=== PATIENT | female | born 1940 | race Caucasian/White ===

== ENCOUNTER → 2020-05-27 11:49 | Outpatient (CLI) | payer MEDICARE, OTHER, SELFPAY ==
[2020-05-28 12:29] LABS: COVID19 Sendout Not Detected (Not Detect)
== END ==
PROVIDERS: Visit Provider Physician Assistant
DX: Z11.59 Encounter for screening for other viral diseases (principal)
CPT/HCPCS: 87635

== ENCOUNTER 2020-05-31 14:30 | Inpatient (IN) | payer MEDICARE, OTHER, SELFPAY ==
[2020-05-23 08:39] VITALS: BMI 23.8
[2020-05-30] VITALS (14 sets, daily range): BP systolic 95–142; BP diastolic 53–84; PULSE 64–100; RESP 11–22; TEMP 36.1–36.9; O2SAT 96–100; BMI 24.3
--- NOTE | 2020-05-30 | DI.RAD.S_ITS ---
PROCEDURE: [id number] W PEL IF PERFORMED INDICATIONS: INTRA OP LEFT HIP TECHNIQUE: 6 operative images of the pelvis and left hip COMPARISON: [facility], CR, [id number] W PEL IF PERFORMED, 12/24/2015, 14:36. FINDINGS: Operative imaging demonstrates performance of total left hip arthroplasty. There is no radiographic evidence of complications. IMPRESSION: Operative imaging demonstrating total left hip arthroplasty with no radiographic evidence of complications. Dictated by: Vikas Zuñiga M.D. on 05/30/2020 at 14:59 Approved by: Vikas Zuñiga M.D. on 05/30/2020 at 15:02
--- NOTE | 2020-05-30 09:56 | DI.RAD.S_ITS ---
PROCEDURE: XR HIP W PEL IF DONE LT 2V INDICATIONS: BEATRICE TECHNIQUE: AP pelvis and lateral view of the left hip acquired. COMPARISON: [facility], CR, [id number] W PEL IF PERFORMED, 05/30/2020, 12:50. FINDINGS: Bones: Patient is status post left hip arthroplasty, with hardware components in expected positions. The hip joint appears congruent. The visualized bony structures appear intact. Soft tissues: Overlying postoperative changes are noted. No suspicious soft tissue densities. IMPRESSION: Expected immediate postoperative appearance of total left hip arthroplasty. Dictated by: Vikas Zuñiga M.D. on 05/30/2020 at 15:02 Approved by: Vikas Zuñiga M.D. on 05/30/2020 at 15:03
[2020-05-30] MEDS: PREGABALIN 75 MG CAPSULE PO (10:15)
[2020-05-30] MEDS: ACETAMINOPHEN 325 MG TABLET 975 MG PO (10:15)
[2020-05-30] MEDS: VANCOMYCIN 1,000 MG/200 ML PIGGYBACK 200 MG IV (10:22)
--- NOTE | 2020-05-30 10:46 | P.OP_ITS ---
Operative Date/Time/Diagnoses Date of procedure: 05/30/20 Time of procedure: 11:31 Pre-op diagnosis: Left hip osteoarthritis Post-op diagnosis: same Procedure & Clinicians Procedure: Left total hip arthroplasty anterior approach Same procedure as scheduled: Yes Indications: The patient has had progressively worsening left hip pain with radiographic changes consistent with arthritis. Non-operative management has failed and the patient has requested total hip replacement. The risks, benefits and alternatives to surgery were discussed with the patient prior to proceeding. Risks discussed included, but were not limited to, failure to relieve pain, leg length discrepancy, dislocation, stiffness, infection, nerve damage, deep venous thrombosis, pulmonary embolism, stroke, coma, heart attack, permanent paralysis and , as well as the potential need for eventual revision of the prosthetic. Surgeon: Kandy Gerardo Bioinformatics Team Member: Markos Merrill Anesthesia Type: General and Spinal Operative Notes Findings: Severe left hip osteoarthritis, good stability, adequate bone Closure Type: primary Specimen(s): none sent Prosthetic devices, grafts, tissues, transplants, or devices: [employer] R3 50mm, anthology standard offset size 5, -3 by 32, 2 scews Estimated Blood Loss (mL): 250 Blood products transfused: none Procedure in detail: The patient was brought to the operating room. Patient was carefully positioned in the supine position. Time-out was performed and antibiotics were given. Anesthesia was induced. She was positioned in the on the table in order to allow hyperextension of the hip. The left lower extremity was prepped and draped in a standard sterile fashion. An anterior left hip incision was made 1 fingerbreadth lateral to the anterior superior iliac spine and extended distally towards the greater trochanter. Dissection was carried out through skin and subcutaneous tissues. The skin and subcutaneous tissues were carefully injected with Lidocaine with epi. Superficial hemostasis was achieved. The fascia over the tensor fascia homero was defined and incised with a knife. Two Allis clamps were used to grasp the fascia. Tensor fascia homero was retracted laterally. A gelpi retractor was placed. Dissection was carried out down along the neck. The circumflex vessels were carefully identified and cauterized with the Aqua Mantis. There was good visualization of the femoral neck. A Cobra was placed superior to the neck and the gluteus fibers were carefully stripped from that superior aspect of the capsule. A 2nd retractor was placed along the inferior aspect of the neck. The rectus insertion along the capsule was partially released. A 3rd retractor that was then gently placed over the rim of the acetabulum under the rectus. Capsule was carefully incised and released from the intertrochanteric line circumferentially superior to the mid sagittal line and inferiorly to the mid sagittal line until the lesser trochanter was palpable. A tag stitch was placed both in the superior and inferior limb of the capsular insertion. Along the acetabulum capsule was also released up to the mid sagittal 12:00 position. A portion of the labrum was resected. A saw was used to perform an osteotomy at the level of the intertrochanteric line and the junction of the superior femoral neck leaving approximately 1 finger breath of residual inferior neck above the lesser trochanter. A 2nd cut was made along the femoral neck at the base of the head and a napkin ring of neck was removed. Corkscrew was placed in the femoral head and the head was removed without difficulty. Retractors were then repositioned around the acetabulum. Residual labrum was resected and additional osteophytes were removed. A reamer that was 4 mm below the templated size was placed by hand in t he acetabulum and it was reamed to centralize the acetabulum. It was then reamed up to 2 under the templated size and fluoroscopy was brought in to confirm the position of the reaming and depth of reaming. I reamed 1 under the anticipated size and touched the rim with line to line reaming. There was slight thinning of the anterior rim. A trial cup was placed and noted that it was appropriately sized and fluoroscopy confirmed position and depth. The component was open and inserted without difficulty fluoroscopic imaging was used to confirm that the cup had been adequately seated and was well positioned. Two screws were used to stabilize the acetabulum. Neutral poly liner was placed. The cup was tested and noted to be stable. Attention was then directed to the femur. The femur was gently hyperextended additional capsular release was performed as needed in order to allow adequate visualization of the proximal femur with elevation of the femur. Patient was placed in a hyperextended slightly adducted position with maximum external rotation. Box osteotome was used to check for any residual neck as well as sclerotic bone along the trochanter. [place] pepper was placed in the femur. A dditional broaching was performed. Canal finder was used to determine the alignment of the canal and position. Size 1 broach was placed. The canal was then appropriately broached up to the templated size as long as there was adequate stability of the broach and serial advancement of the broach without excessive impingement. Specific attention was directed at avoiding varus attempting to direct the distal aspect of the broach more anteriorly and avoiding excessive anteversion. Trial reduction showed acceptable range of motion, good stability, no posterior impingement, advent of leg length and appropriate lateral shuck. I also hyperflexed the hip and checked that there was no impingement anteriorly and there was good stability with flexion, adduction and internal rotation. Marcaine and Exparel were injected. The stem was placed without difficulty. Repeat trial reduction and x-ray showed acceptable overall position, length, and no evidence of the femoral fracture. Final head was placed. Wound was meticulously irrigated with normal saline. The hip was reduced and additional Exparel and Marcaine were injected. The capsule was closed with interrupted nonabsorbable sutures. The fascia of the tensor was closed with interrupted and running Vicryl. No drain was placed. Any tensor fascia homero muscle that appeared to be contused or injured which was a minimal amount was carefully resected. Capsule around the tensor was injected with Exparel and Marcaine. The skin was closed with barbed stitches for the subcutaneous tissue and skin. We also used surgical glue. The wound was dressed sterilely. Brief Betadine soak was also used and was meticulously irrigated with normal saline. Patient was transferred to recovery room in satisfactory condition. Complications: none Post-operative Condition: stable Disposition: Acute Care Plan for aftercare: The patient will be maintained on a standard total hip replacement protocol with weight bearing as tolerated and anterior hip precautions. The patient will receive Aspirin and sequential compression devices for DVT prophylaxis. The patient will be discharged home when safe for the home environment.
--- NOTE | 2020-05-30 10:46 | PM.PREOP ---
Pre-operative Note COVID-19 COVID-19 status: Negative Interval Note History & Physical reviewed/Exam performed by Physician: Yes Changes to H&P: No
[2020-05-30] MEDS: CEFAZOLIN 2 GM/100 ML FROZ.PIGGY IV (11:36)
--- NOTE | 2020-05-30 11:40 | SUR.OPER ---
Supine on padded [place] table with bilateral legs secured in padded positioning boots and suspended in positioning spars, operative leg in traction per surgeon. Head on one pillow. Arm on non-operative side secured on padded armboard <90 degrees abduction. Arm on operative side padded and resting across chest then secured with tape over sheet. Padded perineal post in place per surgeon.
[2020-05-30] MEDS: TRANEXAMIC ACID 1,000 MG VIAL 2000 MG INJ ×2 (11:55→13:46)
[2020-05-30] MEDS: BUPIVACAINE LIPOSOME 266 MG/20 ML VIAL INJ (12:11)
[2020-05-30] MEDS: BUPIVACAINE 0.25% W/ EPI 30 ML VIAL 60 ML INJ (12:12)
[2020-05-30] MEDS: SODIUM CHLORIDE IRRIG SOLUTION 250 ML, POVIDONE-IODINE SPONGE STICKS 1 APPLIC IRR (12:14)
[2020-05-30] MEDS: LACTATED RINGERS 1,000 ML 42 ML IV (14:09)
--- NOTE | 2020-05-30 15:02 | PC.NURSE ---
Patient brought up from PACU at change of shift, oriented to room and call light, VSS. Wiggling feet and toes, +CMS. awake, pleasant and eating ice chips. Aquacel to left anterior hip noted, CDI. Patient denies pain. Call light placed within reach. Called PACU to request updated transfer orders, evening shift RN to assume care to admit.
[2020-05-30] MEDS: ACETAMINOPHEN 325 MG TABLET 650 MG PO (21:16)
[2020-05-30] MEDS: DOCUSATE 100 MG CAPSULE PO (21:16)
[2020-05-30] MEDS: ASPIRIN EC 81 MG TABLET PO (21:16)
--- NOTE | 2020-05-30 23:49 | PC.NURSE ---
Addendum entered by Peg Arzola R.N. 05/31/20 06:02: States pain still at 4/10 and requesting Tylenol so scheduled a.m. dose given early. Did not want additional Oxycodone as she states that doesn't work. Reports was only taking Tylenol at home for effective pain relief. Ice pack applied. State nausea has resolved. Addendum entered by Peg Arzola R.N. 05/31/20 05:15: Complaining of feeling nauseated and stomach hurts; medicated with Zofran and given gingerale per patient request. Addendum entered by Peg Arzola R.N. 05/31/20 03:59: States pain is unchanged but reports it is tolerable and needs no further pain medication. Addendum entered by Peg Arzola R.N. 05/31/20 02:52: Complains of 4/10 pain in left hip along with some numbness on lateral aspect. Long discussion regarding pain medications as patient not really wanting to take narcotics and concern that narcotics with impede her ability to walk in the morning. After provided information, patient agreeable to taking Oxycodone. Original Note: Patient is alert and oriented. Breath sounds CTA with RA sat of 98%. HRR. Denies nausea. BT present and states she is passing flatus but complains of feeling bloated. Denies dysuria, frequency or urgency with urination. Dressing to anterior left hip is CDI. Denies pain except with movement so discussed use of pain medication but patient declines to take anything at this time; ice applied to hip. Is able to move self in bed. Up to bathroom with walker and 1 assist per evening shift report. CMS intact but patient is unable to lift left leg off bed; states she could not lift leg pre-op either. Wearing bilateral calf SCD's. Fall risk score is moderate and bed alarm is activated. Daughter rooming in.
[2020-05-31] MEDS: OXYCODONE IR 5 MG TABLET PO (02:50)
[2020-05-31 04:11] VITALS: BP 102/53; PULSE 80; RESP 18; TEMP 36.1; O2SAT 98
[2020-05-31] MEDS: ONDANSETRON 4 MG ODT PO (05:11)
[2020-05-31 05:53] LABS: Hematocrit 30.2 % (36-46); Hemoglobin 10.1 g/dL (12.0-16.0)
[2020-05-31] MEDS: LEVOTHYROXINE 100 MCG TABLET PO (05:56)
[2020-05-31] MEDS: ACETAMINOPHEN 325 MG TABLET 650 MG PO ×3 (05:56→20:04)
[2020-05-31 07:37] VITALS: BP 126/69; PULSE 71; RESP 18; TEMP 36.9; O2SAT 99
--- NOTE | 2020-05-31 08:05 | PC.NURSE ---
Addendum entered by Michelle Sanchez R.N. 05/31/20 10:49: Patient attempted to get out of bed with physical therapy and her blood pressure dropped to 82/50s. Immediately put back to bed, and then NS bolus started, patients last bp now 100s/ 56. She is stable, denies any dizziness or syncopal episodes and is napping now. She was in some pain when trying to get up, have not given her any pain medication yet as her blood pressure was so low. is aware of situation, he is the one who ordered the 1000cc NS bolus, which is infusing now. Original Note: Assess- Patient is A&Ox3, she is pleasant and cooperative with care. Dressing to l.anterior upper leg is cdi, patient getting out of bed with 1 pa and using gait belt to help lift her extremity. CMS wnl and ppx2. Daugher in room and attentive to patients needs and helpful.
[2020-05-31] MEDS: DOCUSATE 100 MG CAPSULE PO ×2 (08:16→20:04)
[2020-05-31] MEDS: ASPIRIN EC 81 MG TABLET PO ×2 (08:16→20:04)
[2020-05-31] MEDS: polyethylene glycoL 3350 17 GM POWD.PACK PO (08:16)
--- NOTE | 2020-05-31 09:20 | PT.IIE ---
Current Diagnoses Unilateral primary osteoarthritis, right hip (05/30/20) Other specified enthesopathies of unspecified lower limb, excluding foot (05/30/20) Surgery Performed Operation Date: 05/30/20 11:30 Actual Procedures p Total Hip Arthroplasty/Anterior Approach(Left) - Kandy Gerardo MD Surgical History (Last Updated 05/23/20 @ 08:45 by Esther Trujillo, RN) History of bunionectomy of both great toes (Acute) History of total right hip arthroplasty (Acute 12/2015) Hx of dilation and curettage (Acute) Hx of partial thyroidectomy (Acute 1978) Medical History (Last Updated 05/23/20 @ 09:17 by Esther Trujillo RN) Asthma (Acute) Deanna's disease (Acute) RLS (restless legs syndrome) (Acute) Vertigo (Acute) Physical Therapy Inpatient Evaluation/Re-Eval M1 PT/OT-IP Prior Functional Status Start: 05/31/20 12:41 Freq: NEEDED Status: Active Protocol: Document 05/31/20 09:20 AB (Rec: 05/31/20 12:54 [email or web address]) Medical Review Prior Functional Status Medical History Reviewed Yes Communication able to make needs known Mobility and Gait pt stated that she is modified independent with all mobilities and ambualtion using SPC occasionally without AD; occasionally uses FWW for outdoor ambulation. Social History Household Members none Living Arrangements House Number of Floors (Floors) One Floor Number of Stairs To Enter/Railing? no steps to enter Home Environment Standard Height Toilet,Walk in Shower,Built-In Shower Seat Home Equipment Front Wheel Walker,Straight Cane,Raised Toilet Seat w/ Armrests,Grab Bars In Shower Additional Social History Comment Pt's daughter will stay with pt to assist upon d/c M2 PT-IP Current Condition Start: 05/31/20 12:41 Freq: NEEDED Status: Active Protocol: Document 05/31/20 09:20 AB (Rec: 05/31/20 12:54 [email or web address]) Physical Therapy Current Condition Current Condition Evaluation Date 05/31/20 Treatment Diagnosis s/p L BEATRICE anterior approach; difficulty in walking Onset Date 05/30/20 Precautions Anterior Hip Precautions No Hip Extension,No Hip External Rotation Weight Bearing Status Weight Bearing Status Weight Bear as Tolerated Allowed Weight Bearing Amount (enter % LLE WBAT or #) (%) M3 PT-IP Subjective Start: 05/31/20 12:41 Freq: NEEDED Status: Active Protocol: Document 05/31/20 09:20 AB (Rec: 05/31/20 12:54 AB [email or web address]) Subjective Physical Therapy Visit Type Type Initial Evaluation Visit Start Time 09:20 Visit Stop Time 10:03 Total Visit Minutes 53 Number of PSYCHIATRIC CLINICAL NURSE SPECIALIST Visits 0 Physical Therapy Visit Comments Patient Comments pt is agreeable to do PT Therapy Pain Assessment Pain When Pain Assessed At Rest Pain Present Pain Present Pain Reported Location left hip Intensity 5 Scale Used Numeric (0 - 10) Pain Management Techniques Apply Cold,Elevation, Modification of Treatment,Re- positioning,Timing of Activity with Medications M4 PT-IP Mobility and Gait Start: 05/31/20 12:41 Freq: NEEDED Status: Active Protocol: Document 05/31/20 09:20 AB (Rec: 05/31/20 12:54 [email or web address]) PT-Bed Mobility Assessment Supine to Sit Supine to Sit Maximum Assistance,1 Person Assistance Sit to Supine Sit to Supine Maximum Assistance,1 Person Assistance PT-Transfer Assessment Comments Mobility Comments educated pt and pt's daughter regarding anterior hip precautions. pt has decrease attention span and requires redirection to focus on task at hand. BP supine: 88/51 but rechecked : 127/50. completed supine to sit max A and cues. c/o increase hip pain with mobility. pt was able to sit on EOB min A. c/o dizziness. BP checked: 75/45. pt has to be assisted back to bed. completed sit to supine max A and cues. positioned in bed. call light and table placed within reach. BP checked: 82/ 54. nurse aware. BP checked again: 97/54 PT-Balance Assessment Sitting Balance and Reactions Static Sitting Balance Ability Good Dynamic Sitting Balance Ability Fair Standing Balance and Reactions Device Used n/t M5 PT-IP Objective Assessments Start: 05/31/20 12:41 Freq: NEEDED Status: Active Protocol: Document 05/31/20 09:20 AB (Rec: 05/31/20 12:54 [email or web address]) Orientation Orientation/Cognition Level of Alertness Alert Orientation Name Language Function Ability Hard of Hearing Safety Awareness Decreased Safety Awareness Memory Description Short Term Impaired Gross Range of Motion Lower Extremity ROM Assessment Within Functional Limits Strength Lower Extremity Strength Assessment Left Impaired Hip 3-/5 Knee 3+/5 Coordination Assessment Gross Coordination Gross Coordination WNL Sensation Assessment Sensation Gross Sensation WNL Muscle Tone Muscle Tone WNL Yes M6 PT-IP Treatment Start: 05/31/20 12:41 Freq: NEEDED Status: Active Protocol: Document 05/31/20 09:20 AB (Rec: 05/31/20 12:54 AB [id number]) Physical Therapy Treatment Education Education Provided Precautions,Weight Bearing Status,Post-Op Packet,Safety M7 PT-IP Assessment and Plan Start: 05/31/20 12:41 Freq: NEEDED Status: Active Protocol: Document 05/31/20 09:20 AB (Rec: 05/31/20 12:54 AB [email or web address]) PT Summary Assessment and Plan Potential Rehabilitation Potential Fair Status of Condition at Evaluation Evolving Summary Impairments Pain,ROM,Strength,Balance, Coordination,Sensation,Tone, Cognition,Bed Mobility, Transfers,Gait,Activity Tolerance Assessment Summary Pt unable to tolerate much activity today due to decrease in BP to 75/45 in sitting. will need further assessment to determine safe d/c plan. pt wants to go home and daughter will be staying with pt to assist. will continue to assess progress. Goals Bed Mobility Goal Standby Assistance Transfer Goal Standby Assistance,Front Wheeled Walker Gait Goal Standby Assistance,Front Wheel Walker Gait Distance 150 Days to Meet Goals 5 Frequency of Treatment Frequency Of Treatment Twice a Day Treatment Plan Physical Therapy Treatment Plan Bed Mobility Training,Transfer Training,Gait Training, Therapeutic Exercise,Balance Retraining,Post Op Education, Discharge Planning,Hot or Cold Pack,Neuromuscular Re-ed, Coordination Retraining,Manual Therapy Recommendations To Nursing Amount of Assist Needed PT/OT Assist Only Discharge Recommendations PT Discharge Recommendations Home with 24/7 Assist,Home Health,SNF Rehab Other Discharge Recommendations depending on progress: SNF vs home with 24/7 and HHPT Transportation Needs at Discharge Private Vehicle,Wheelchair/ Cabulance
[2020-05-31] MEDS: SODIUM CHLORIDE 0.9% 1,000 ML 1000 ML IV (10:21)
[2020-05-31 11:11] VITALS: BP 108/69; PULSE 83; RESP 19; TEMP 37.1; O2SAT 92
--- NOTE | 2020-05-31 13:20 | PT.IPTN ---
Current Diagnoses Unilateral primary osteoarthritis, right hip (05/31/20) Other specified enthesopathies of unspecified lower limb, excluding foot (05/31/20) Surgery Performed Operation Date: 05/30/20 11:30 Actual Procedures p Total Hip Arthroplasty/Anterior Approach(Left) - Kandy Gerardo MD Physical Therapy Treatment Note M2 PT-IP Current Condition Start: 05/31/20 12:41 Freq: NEEDED Status: Active Protocol: Document 05/31/20 09:20 AB (Rec: 05/31/20 12:54 AB [email or web address]) Physical Therapy Current Condition Current Condition Evaluation Date 05/31/20 Treatment Diagnosis s/p L BEATRICE anterior approach; difficulty in walking Onset Date 05/30/20 Precautions Anterior Hip Precautions No Hip Extension,No Hip External Rotation Weight Bearing Status Weight Bearing Status Weight Bear as Tolerated Allowed Weight Bearing Amount (enter % LLE WBAT or #) (%) M3 PT-IP Subjective Start: 05/31/20 12:41 Freq: NEEDED Status: Active Protocol: Document 05/31/20 13:20 AB (Rec: 05/31/20 16:58 AB [email or web address]) Subjective Physical Therapy Visit Type Type Treatment Note Visit Start Time 13:20 Visit Stop Time 14:30 Total Visit Minutes 70 Number of ROD AND TUBE STRAIGHTENER Visits 0 Physical Therapy Visit Comments Patient Comments pt is agreeable to do PT Therapy Pain Assessment Pain When Pain Assessed During Mobility Pain Present Pain Present Pain Reported Location left hip Scale Used pain scale not stated M4 PT-IP Mobility and Gait Start: 05/31/20 12:41 Freq: NEEDED Status: Active Protocol: Document 05/31/20 13:20 AB (Rec: 05/31/20 16:58 [email or web address]) PT-Bed Mobility Assessment Supine to Sit Supine to Sit Moderate Assistance,Maximum Assistance,1 Person Assistance PT-Transfer Assessment Sit to and From Stand Sit to and from Stand Minimal Assistance,1 Person Assistance,Use of Upper Extremities Equipment Transfer Assistive Device Gait Belt,Front Wheeled Walker Orthotic/Prosthetic Devices or Brace: No Transfers Transfer Destination Toilet Transfer Technique ambulated using FWW Transfer Ability Level of Assist Minimal Assistance,1 Person Assistance,Use of Upper Extremities Comments Mobility Comments reviewed hip precautions and pt unable to recall and requires cues. educated on precautions again. BP monitored. BP supine: 120/64. pt requesting to use the toilet. completed sit to supine mod to max A for assisting LE to EOB. pt was able to sit on EOB CGA. BP checked:149/60 . pt with no c /o dizziness. pt completed sit to stand min A and cues. pt ambulated to the toilet using FWW min A. cued to maintain hip precautions. completed sit to stand from the tilet min A using grab bar . pt ambulated towards the chair min A using FWW. BP checked: 86/51. pt rested for ~ 2min and BP checked again: 76/46. positioned pt on chair with LE elevated. BP checked: 99/54. call light and table placed within reach. informed nurse of low BP. informed pt and family of caregiver training tomorrow and daughter agreed and stated that she will be in the hospital the whole day. Gait Assessment Gait Gait Assistance Required: Minimum Assistance Distance (Feet) 12 Able to Maintain Weight Bearing Status Yes During Gait Assistive Devices Assistive Device Gait Belt,Front Wheeled Walker Orthotic/Prosthetic Devices or Brace: No Gait Deviations General Gait Pattern Decreased Stride Length, Decreased Feet Clearance Factors Limiting Gait Function Factors Limiting Gait Function Decreased Activity Tolerance, Decreased Strength,Difficulty Following Directions,Limited Range of Motion,Pain,Poor Balance,Poor Safety Awareness Comments Gait Comments requires cues to maintain hip precautions and step by step instructions for techniques. pt has decrease memory and affecting carryover. M5 PT-IP Objective Assessments Start: 05/31/20 12:41 Freq: NEEDED Status: Active Protocol: Document 05/31/20 09:20 AB (Rec: 05/31/20 12:54 AB [email or web address]) Orientation Orientation/Cognition Level of Alertness Alert Orientation Name Language Function Ability Hard of Hearing Safety Awareness Decreased Safety Awareness Memory Description Short Term Impaired Gross Range of Motion Lower Extremity ROM Assessment Within Functional Limits Strength Lower Extremity Strength Assessment Left Impaired Hip 3-/5 Knee 3+/5 Coordination Assessment Gross Coordination Gross Coordination WNL Sensation Assessment Sensation Gross Sensation WNL Muscle Tone Muscle Tone WNL Yes M6 PT-IP Treatment Start: 05/31/20 12:41 Freq: NEEDED Status: Active Protocol: Document 05/31/20 13:20 AB (Rec: 05/31/20 16:58 AB [email or web address]) Physical Therapy Treatment Education Education Provided Precautions,Weight Bearing Status,Safety M7 PT-IP Assessment and Plan Start: 09/25/20 12:41 Freq: NEEDED Status: Active Protocol: Document 05/31/20 13:20 AB (Rec: 05/31/20 16:58 AB [id number]) PT Summary Assessment and Plan Potential Rehabilitation Potential Fair Summary Impairments Pain,ROM,Strength,Balance, Coordination,Sensation,Tone, Cognition,Bed Mobility, Transfers,Gait,Activity Tolerance Progress Towards Goals Slow Progress due to Activity Tolerance Assessment Summary pt continues to not tolerate much activity due to decrease in BP with upright activity: 76/46 after ambulation. pt also has cognitive issues affecting following instructions, carryover and recall of hip precautions. pt 's rivas plans to assist pt at home and agreed to caregiver training tomorrow. stated that she will be in the hospital for the whole day. d/c plan depending on progress . Goals Bed Mobility Goal Standby Assistance Transfer Goal Standby Assistance,Front Wheeled Walker Gait Goal Standby Assistance,Front Wheel Walker Gait Distance 150 Days to Meet Goals 5 Frequency of Treatment Frequency Of Treatment Twice a Day Treatment Plan Physical Therapy Treatment Plan Bed Mobility Training,Transfer Training,Gait Training, Therapeutic Exercise,Balance Retraining,Post Op Education, Discharge Planning,Hot or Cold Pack,Neuromuscular Re-ed, Coordination Retraining,Manual Therapy Recommendations To Nursing Amount of Assist Needed 1 Person Assist Discharge Recommendations PT Discharge Recommendations Home with 24/7 Assist,Home Health,SNF Rehab Other Discharge Recommendations depending on progress: SNF vs home with 24/7 and HHPT Transportation Needs at Discharge Private Vehicle,Wheelchair/ Cabulance
[2020-05-31 15:57] VITALS: BP 96/53; PULSE 79; RESP 18; TEMP 37.3; O2SAT 98
[2020-05-31 19:54] VITALS: BP 107/49; PULSE 88; RESP 18; TEMP 37.2; O2SAT 98
[2020-05-31] MEDS: SODIUM CHLORIDE 0.9% FLUSH 10 ML IV (20:04)
[2020-05-31 23:50] VITALS: BP 108/52; PULSE 87; RESP 16; TEMP 37.1; O2SAT 95
[2020-06-01 04:45] VITALS: BP 128/66; PULSE 93; RESP 18; TEMP 36.7; O2SAT 96
[2020-06-01] MEDS: LEVOTHYROXINE 100 MCG TABLET PO (05:58)
[2020-06-01] MEDS: ACETAMINOPHEN 325 MG TABLET 650 MG PO ×2 (06:01→11:05)
--- NOTE | 2020-06-01 06:39 | PC.NURSE ---
Slept in the recliner all shift, reports only have pain when I get to the BR. Requested Tylenol 650 mg. admin. Hoping to go home this morning, will cont. POC & monitor.
[2020-06-01] MEDS: DOCUSATE 100 MG CAPSULE PO (08:43)
[2020-06-01] MEDS: SODIUM CHLORIDE 0.9% FLUSH 10 ML IV (08:43)
[2020-06-01] MEDS: ASPIRIN EC 81 MG TABLET PO (08:43)
--- NOTE | 2020-06-01 09:28 | PM.PN.1 ---
Subjective Subjective Date Patient Seen: 06/01/20 Time Patient Seen: 09:48 Interval history: Patient is POD#2 s/p left BEATRICE with Dr. Gerardo. She had some hypotension yesterday while working with PT. She was given 1000ml bolus NS and was able to work with PT later in the afternoon. She is asymptomatic this morning. Pain has been minimal and well controlled with Tylenol. She is tolerating a diet and voiding appropriately. Exam Vital Signs (past 8 hours): - 06/01/20 04:45 Temperature 98.1 F Pulse Rate 93 H Respiratory Rate 18 Blood Pressure 128/66 Pulse Oximetry 96 Oxygen Delivery Method Room Air Oxygen Flow Rate 0 Narrative Exam Narrative: 80 year old female resting in chair, alert and oriented. Aquacel dressing in place over right hip is CDI. She is neurovascularly intact in distal extremity. Calves soft, nontender. Objective Labs Result Diagrams: 05/31/20 05:24 Assessment & Plan Assessment & Plan narrative: Patient doing well postoperatively. Hypotension is resolving. She has succesfully mobilized with PT. ASA 81mg BID for DVT prophylaxis. Will discharge her with script for oxycodone, discussed filling this only if pain worsens over the next few days. Anticipate she will not require this. Stable for discharge to home with daughter as caregiver later today.
[2020-06-01 09:45] VITALS: BP 105/50; PULSE 78; RESP 16; TEMP 37.2; O2SAT 97
--- NOTE | 2020-06-01 11:31 | PT.IPTN ---
Current Diagnoses Unilateral primary osteoarthritis, right hip (05/31/20) Other specified enthesopathies of unspecified lower limb, excluding foot (05/31/20) Surgery Performed Operation Date: 05/30/20 11:30 Actual Procedures p Total Hip Arthroplasty/Anterior Approach(Left) - Kandy Gerardo MD Physical Therapy Treatment Note M2 PT-IP Current Condition Start: 05/31/20 12:41 Freq: NEEDED Status: Discharge Protocol: Document 05/31/20 09:20 AB (Rec: 05/31/20 12:54 AB [id number]) Physical Therapy Current Condition Current Condition Evaluation Date 05/31/20 Treatment Diagnosis s/p L BEATRICE anterior approach; difficulty in walking Onset Date 05/30/20 Precautions Anterior Hip Precautions No Hip Extension,No Hip External Rotation Weight Bearing Status Weight Bearing Status Weight Bear as Tolerated Allowed Weight Bearing Amount (enter % LLE WBAT or #) (%) M3 PT-IP Subjective Start: 05/31/20 12:41 Freq: NEEDED Status: Discharge Protocol: Document 06/01/20 10:55 [place] (Rec: 06/01/20 12:36 [place] [email or web address]) Subjective Physical Therapy Visit Type Type Treatment Note Visit Start Time 10:55 Visit Stop Time 11:31 Total Visit Minutes 36 Number of BOBTAIL DRIVER Visits 1 Physical Therapy Visit Comments Patient Comments Pts daugther present for caregiver training. M4 PT-IP Mobility and Gait Start: 05/31/20 12:41 Freq: NEEDED Status: Discharge Protocol: Document 06/01/20 10:55 [place] (Rec: 06/01/20 12:36 [place] [id number]) PT-Bed Mobility Assessment Supine to Sit Supine to Sit Minimal Assistance Sit to Supine Sit to Supine Minimal Assistance,1 Person Assistance Scooting Scooting to Edge of Bed Standby Assistance PT-Transfer Assessment Sit to and From Stand Sit to and from Stand Contact Guard Assistance,1 Person Assistance,Use of Upper Extremities Equipment Transfer Assistive Device Gait Belt,Front Wheeled Walker Orthotic/Prosthetic Devices or Brace: No Transfers Transfer Destination Bed,Chair Transfer Technique ambulated using FWW Transfer Ability Level of Assist Contact Guard Assistance,1 Person Assistance,Use of Upper Extremities Comments Mobility Comments Pt in chair upon arrival w/ daughter present. Pt able to recall precautions. Demonstrated gait belt application to pts daughter, who was able to successfully apply. Pt SBA for scooting to EOC, CGA for sit<>stand. BP 115/67 after 2 min standing. Pt then ambulated about ~20 ft around room w/ daughter providing CGA. Pts BP assessed again at 113/60. Pt demonstrated good use of FWW. Pt then stand<>sit EOB SBA and sit<>sup Min A for LE assistance provided by pts daughter. Pt Min A for sup<> sit for LE guidance as well. Pt then sit<>stand CGA provided by pts daughter and ambulated addtional ~20 ft around room before stand<>sit in chair CGA. Reviewed LE exercises, appropriate positioning, precaustions, gait belt use, and provided instruction for car transfers to pt and daughter. Pts daughter states she feels that she will be able to provide pt w/ assist at home. Pt expressed interest in HH, informed [employer] who provided pt w / info. Gait Assessment Gait Gait Assistance Required: Contact Guard Assist Distance (Feet) 40 Able to Maintain Weight Bearing Status Yes During Gait Assistive Devices Assistive Device Gait Belt,Front Wheeled Walker Orthotic/Prosthetic Devices or Brace: No Gait Deviations General Gait Pattern Decreased Stride Length, Decreased Feet Clearance Factors Limiting Gait Function Factors Limiting Gait Function Decreased Activity Tolerance, Decreased Strength,Difficulty Following Directions,Limited Range of Motion,Pain,Poor Balance,Poor Safety Awareness Comments Gait Comments Pt ambulated ~40 total ft w/ FWW step to gait and CGA provided by pts kade. Pt demonstrated safe use of FWW and good awareness of precautions. No LOB or unsteadiness throughout. Stair Climbing Assessment Comments Stair Climbing Comments not assessed, no stairs at home. PT-Balance Assessment Sitting Balance and Reactions Static Sitting Balance Ability Good Dynamic Sitting Balance Ability Good Standing Balance and Reactions Static Standing Balance Ability Good Dynamic Standing Balance Ability Fair Device Used FWW M5 PT-IP Objective Assessments Start: 05/31/20 12:41 Freq: NEEDED Status: Discharge Protocol: Document 05/31/20 09:20 AB (Rec: 05/31/20 12:54 AB [id number]) Orientation Orientation/Cognition Level of Alertness Alert Orientation Name Language Function Ability Hard of Hearing Safety Awareness Decreased Safety Awareness Memory Description Short Term Impaired Gross Range of Motion Lower Extremity ROM Assessment Within Functional Limits Strength Lower Extremity Strength Assessment Left Impaired Hip 3-/5 Knee 3+/5 Coordination Assessment Gross Coordination Gross Coordination WNL Sensation Assessment Sensation Gross Sensation WNL Muscle Tone Muscle Tone WNL Yes M6 PT-IP Treatment Start: 05/31/20 12:41 Freq: NEEDED Status: Discharge Protocol: Document 06/01/20 10:55 [place] (Rec: 06/01/20 12:36 KS [id number]) Physical Therapy Treatment Exercises Exercises Ankle Pumps,Gluteal Sets,Quad Sets Education Education Provided Precautions,Weight Bearing Status,Post-Op Packet,Safety Other Treatments Other Treatment Performed Completed caregiveer training w/ pts daughter including bed mobility, transfers, gait belt application and use, exercises, ambulation. M7 PT-IP Assessment and Plan Start: 05/31/20 12:41 Freq: NEEDED Status: Discharge Protocol: Document 06/01/20 10:55 KS (Rec: 06/01/20 12:36 KS [id number]) PT Summary Assessment and Plan Potential Rehabilitation Potential Good Summary Impairments Pain,ROM,Strength,Balance, Coordination,Sensation,Tone, Cognition,Bed Mobility, Transfers,Gait,Activity Tolerance Progress Towards Goals Progressing Toward Goals Assessment Summary Pt is SBA for scooting, CGA for sit<>stand, Min A for bed mobility, and CGA for ambulation. Pt has good awareness of precautions and demonstrated proper use of FWW . Pts daughter was able to correctly apply gait belt and provide pt w/ appropriate level of assist. Pts daughter will be staying w/ pt for at least a week and longer if needed and her son lives 2 blocks away. Informed pt about HH and [employer] followed up w/ pt regarding. Pt and daughter state they feel safe to return home. Goals Bed Mobility Goal Standby Assistance Transfer Goal Standby Assistance,Front Wheeled Walker Gait Goal Standby Assistance,Front Wheel Walker Gait Distance 150 Days to Meet Goals 5 Frequency of Treatment Frequency Of Treatment Twice a Day Treatment Plan Physical Therapy Treatment Plan Bed Mobility Training,Transfer Training,Gait Training, Therapeutic Exercise,Balance Retraining,Post Op Education, Discharge Planning,Hot or Cold Pack,Neuromuscular Re-ed, Coordination Retraining,Manual Therapy Recommendations To Nursing Amount of Assist Needed 1 Person Assist Discharge Recommendations PT Discharge Recommendations Home with 24/ Assist,Home Health,SNF Rehab Transportation Needs at Discharge Private Vehicle,Wheelchair/ Cabulance
--- NOTE | 2020-06-01 12:17 | PC.NURSE ---
Went over dc meds and instructions with patient and patients daughter, questions answered. Clarified dose of ibubrofen for home with Val BROUSSARD. Rx for new meds given. Patient taken via wc to vehicle driven by daughter, patient had all belongings.
--- NOTE | 2020-06-01 12:38 | CM.DANOTE ---
Patient is an 80 year old female who was admitted on 05/30/20 for LTHA. Pt has [facility] and [facility] for insurance and her PCP is Jung Nunes. EMR was reviewed. Per Ortho , pt tolerated procedure well and now stable for likely d/c home pending further PT eval and recommendations. Per PT, recommending safe d/c home with Dtr Felicitas to stay and assist pt 24/7 at d/c and HH. SW met bedside with pt and Dtr Felicitas and explained role and pt confirms that she lives in [place] alone and has been mostly independent with ADL's. Dtr Felicitas will be staying with pt at d/c to assist 24/7 for as long as needed. Pt denies any hx of HH and SW explained HH services and frequency and pt and Dtr are agreeable. SW provided the HH Choice List and no preference and agreeable with HH referral made to [facility] based on vendor calendar. SW called [facility] with new referral and faxed MD Cristiane orders, and clinicals to review for discharge home today. Plan: Patient to d/c home today via Dtr POV and to stay with pt along with new [facility]. MILADYS Tolbert
== END 2020-06-01 12:19 | disposition home health service (06) | DRG 470 ==
LOC: OR 15:00 → AC 15:00
PROVIDERS: Physician Assistant Surgical; Admitting Provider Orthopaedic Surgery; Referring Provider Orthopaedic Surgery; Visit Provider Orthopaedic Surgery
PROC: 0SRB02A Replacement of Left Hip Joint with Metal on Polyethylene Synthetic Substitute, Uncemented, Open Approach (ICD-10-PCS; CPT 27130; principal; 2020-05-30 11:30)
DX: M16.12 Unilateral primary osteoarthritis, left hip (principal); E06.3 Autoimmune thyroiditis; I95.9 Hypotension, unspecified
CPT/HCPCS: 36415; 73502; 73503; 76000; 85014; 85018; 97116; 97162; 97530; C1776; C9290; J0690; J1100; J2250; J2405; J2704; J3010